=== PATIENT | male | born 1980 | race Caucasian/White ===

== ENCOUNTER 2018-01-06 19:19 | Emergency (ER) | payer BC ==
--- NOTE | 2018-01-06 20:24 | RAD REPORT ---
EXAM DESCRIPTION: CT - Head Brain Wo Cont - 01/06/2018 8:18 pm CLINICAL HISTORY: Weakness, numbness, TIA COMPARISON: None. TECHNIQUE: Axial 5 mm thick images of the head were obtained without IV contrast. All CT scans are performed using dose optimization technique as appropriate and may include automated exposure control or mA/KV adjustment according to patient size. FINDINGS: No intracranial hemorrhage, mass, edema or shift of mid-line structures. No acute infarcti on changes seen. No abnormal extra-axial fluid collections. Ventricles are normal. Mastoid air cells and visualized portions of the paranasal sinuses are clear. No acute bony findings. IMPRESSION: Negative non-contrast CT head examination.
[2018-01-06 21:03] LABS: Absolute Lymphocytes (CBC) 1.8 K/uL (0.7-4.9); Absolute Monocytes 0.5 K/uL (0.1-1.3); Absolute Neutrophil 3.6 K/uL (1.8-8.0); Basophils % 0.4 % (0-1.3); Eosinophils % 1.3 % (0-4.4); Hematocrit 45.5 % (39.6-49.0); Lymphocytes % 29.8 % (15.3-44.8); MCH 31.8 pg (27.0-35.0); MCV 90.9 fL (80-100); MPV 7.5 fL (7.6-11.3); Monocytes % 8.1 % (3.3-12.3); RBC Red Blood Cell Count 5.01 M/uL (4.33-5.43)
[2018-01-06 21:07] LABS: Protime INR 1.13
[2018-01-06 21:19] LABS: BUN Blood Urea Nitrogen 23 mg/dL (7-18); Bicarbonate 30 mmol/L (21-32); CKMB Creatine Kinase MB < 1.0 ng/mL (0.3-3.6); Creatine Phosphokinase 106 U/L (39-308); Glucose Level 121 mg/dL (74-106); Magnesium 2.4 mg/dL (1.8-2.4); Potassium 3.7 mmol/L (3.5-5.1); Sodium Level 142 mmol/L (136-145)
[2018-01-06] MEDS ORDERED: GENTAMICIN 0.3% OPTH DROP 5ML ONE (21:22)
[2018-01-06] MEDS ORDERED: NA CHLORIDE 0.9% 1,000 ML ONE (21:54)
--- NOTE | 2018-01-06 22:19 | ER ---
Nurse's Notes [facility] Name: Mina Simpson Age: 37 yrs Sex: Male : 1980 Arrival Date: 01/06/2018 Time: 19:22 Bed 14 Private MD: Diagnosis: Paresthesia of skin;Dysphasia and aphasia Presentation: 01/06 19:23 Presenting complaint: Patient states: "Yesterday driving home from [place] my leg fell aj1 asleep. It quit and then my arm fell asleep and then it quit and then my whole side fell asleep and I had a hard time talking. It happened again 3 hours ago." Denies any numbness at this time. Speech is clear, gait is steady, doctor assistant are equal and strong bilaterally. Patient reports that each episode lasts 30 minutes to an hour and then resolves and he feel fine afterward. Transition of care: patient was not received from another setting of care. Onset of symptoms was January 06, 2018 at 16:45. Risk Assessment: Do you want to hurt yourself or someone else? Patient reports no desire to harm self or others. Initial Sepsis Screen: Does the patient meet any 2 criteria? No. Patient's initial sepsis screen is negative. Does the patient have a suspected source of infection? No. Patient's initial sepsis screen is negative. Care prior to arrival: None. 19:23 Method Of Arrival: Ambulatory [facility] 19:23 Acuity: NATE 3 aj1 Triage Assessment: 19:27 General: Appears in no apparent distress. comfortable, Behavior is calm, cooperative, aj1 appropriate for age. Pain: Denies pain. Neuro: Level of Consciousness is awake, alert, obeys commands, Oriented to person, place, time, situation, Production Manager are equal bilaterally Moves all extremities. Full function Gait is steady, Speech is normal, Facial symmetry appears normal, Reports numbness that has now resolved. Cardiovascular: Patient's skin is warm and dry. Respiratory: Airway is patent Respiratory effort is even, unlabored, Respiratory pattern is regular, symmetrical. Derm: Skin is pink, warm \\T\\ dry. normal. Musculoskeletal: Circulation, motion, and sensation intact. Historical: - Allergies: 19:27 No Known Allergies; aj1 - Home Meds: 19:27 Nexium Oral [Active]; Allergy Medicine oral oral [Active]; aj1 - PMHx: 19:27 GERD; aj1 - PSHx: 19:27 Appendectomy; aj1 - Immunization history:: Flu vaccine is not up to date. - Social history:: Smoking status: Patient/guardian denies using tobacco. - Ebola Screening: : Patient denies travel to an Ebola-affected area in the 21 days before illness onset. - Family history:: not pertinent. - Hospitalizations: : No recent hospitalization is reported. Screenin:34 Abuse screen: Denies threats or abuse. Denies injuries from another. Nutritional bp screening: No deficits noted. Tuberculosis screening: No symptoms or risk factors identified. Fall Risk None identified. Assessment: 19:34 General: SEE TRIAGE NOTE. PT HAS NO ACUTE S/S AT THIS TIME. bp 21:30 Reassessment: PT NEURO INTACT. DISPOSITION PENDING. bp 23:33 Reassessment: REPORT TO [facility] AT [facility], RM 918. TRANSPORT PENDING. bp 01/07 01:30 Reassessment: EMS AT B/S FOR TRANSPORT. bp Vital Signs: 01/06 19:27 BP 135 / 93; Pulse 94; Resp 18; Temp 98.5; Pulse Ox 97% on R/A; Weight 85.28 kg (R); aj1 Height 5 ft. 6 in. (167.64 cm) (R); Pain 0/10; 20:50 BP 118 / 104; Pulse 91; Resp 14; Pulse Ox 95% ; bp 23:00 BP 132 / 85; Pulse 75; Resp 16; Pulse Ox 96% on R/A; bp 01/07 01:00 BP 124 / 83; Pulse 85; Resp 14; Pulse Ox 97% ; bp 01/06 19:27 Body Mass Index 30.34 (85.28 kg, 167.64 cm) aj1 ED Course: 01/06 19:22 Patient arrived in ED. es 19:26 Triage completed. aj1 19:27 Arm band placed on Patient placed in an exam room. aj1 19:33 Salvador Kc, RN is Primary Nurse. bp 19:34 Patient has correct armband on for positive identification. Bed in low position. Call bp light in reach. Side rails up X2. Adult w/ patient. 19:47 James Luna MD is Attending Physician. rn 20:18 CT Head Brain wo Cont In Process Unspecified. EDMS 20:45 Inserted saline lock: 20 gauge in right forearm, using aseptic technique. Blood bp collected. 23:37 No provider procedures requiring assistance completed. Patient transferred, IV remains bp in place. Administered Medications: 21:50 Drug: NS 0.9% 1000 ml Route: IV; Rate: 1000 ml; Site: right forearm; bp 23:38 Follow up: IV Status: Completed infusion bp 22:30 Drug: Aspirin Chewable Tablet 324 mg Route: PO; bp 23:18 Follow up: Response: No adverse reaction bp Outcome: 22:19 ER care complete, transfer ordered by . rn 23:37 Transferred by ground EMS to [facility]. bp 23:37 Condition: stable 23:37 Instructed on the need for transfer. 01/07 01:40 Patient left the ED. bp Signatures: Dispatcher [employer] Shawna Mcdowell RN RN Riddhi Cox Roman, MD MD rn Peltier, Brian, RN RN bp
--- NOTE | 2018-01-06 22:19 | EDPHYS ---
Physician Documentation [facility] Name: Mina Simpson Age: 37 yrs Sex: Male : 1980 Arrival Date: 01/06/2018 Time: 19:22 Bed 14 Private MD: ED Physician James Luna HPI: 01/06 21:57 This 37 yrs old Male presents to ER via Ambulatory with complaints of rn Numbness Of Face, Numbness of rt side of body and leg. 21:57 The patient's problem is reported as paresthesias, in right upper extremity, in right rn lower extremity, in right side of face, dysphasia. Onset: The symptoms/episode began/occurred yesterday. Duration: The episodes are intermittent. Associated signs and symptoms: Pertinent positives: numbness. Severity of symptoms: At their worst the symptoms were moderate in the emergency department the symptoms have improved. The patient has not experienced similar symptoms in the past. Reports slurred speech, unable to get out his words, facial numbness, leg numbness, lasted about an hour, resolved, happened again today. . Historical: - Allergies: 19:27 No Known Allergies; aj1 - Home Meds: 19:27 Nexium Oral [Active]; Allergy Medicine oral oral [Active]; aj1 - PMHx: 19:27 GERD; aj1 - PSHx: 19:27 Appendectomy; aj1 - Immunization history:: Flu vaccine is not up to date. - Social history:: Smoking status: Patient/guardian denies using tobacco. - Ebola Screening: : Patient denies travel to an Ebola-affected area in the 21 days before illness onset. - Family history:: not pertinent. - Hospitalizations: : No recent hospitalization is reported. ROS: 21:57 Constitutional: Negative for fever, chills, and weight loss, Eyes: Negative for injury, rn pain, redness, and discharge, Neck: Negative for injury, pain, and swelling, Cardiovascular: Negative for chest pain, palpitations, and edema, Respiratory: Negative for shortness of breath, cough, wheezing, and pleuritic chest pain, Abdomen/GI: Negative for abdominal pain, nausea, vomiting, diarrhea, and constipation, MS/Extremity: Negative for injury and deformity, Skin: Negative for injury, rash, and discoloration, Neuro: Negative for headache, weakness, and seizure. Exam: 21:57 Radiologist reports: No acute findings rn 21:57 Constitutional: This is a well developed, well nourished patient who is awake, alert, and in no acute distress. Head/Face: Normocephalic, atraumatic. Eyes: Pupils equal round and reactive to light, extra-ocular motions intact. Lids and lashes normal. Conjunctiva and sclera are non-icteric and not injected. Cornea within normal limits. Periorbital areas with no swelling, redness, or edema. Neck: Trachea midline, no thyromegaly or masses palpated, and no cervical lymphadenopathy. Supple, full range of motion without nuchal rigidity, or vertebral point tenderness. No Meningismus. Cardiovascular: Regular rate and rhythm with a normal S1 and S2. No gallops, murmurs, or rubs. Normal PMI, no JVD. No pulse deficits. Respiratory: Lungs have equal breath sounds bilaterally, clear to auscultation and percussion. No rales, rhonchi or wheezes noted. No increased work of breathing, no retractions or nasal flaring. Abdomen/GI: Soft, non-tender, with normal bowel sounds. No distension or tympany. No guarding or rebound. No evidence of tenderness throughout. MS/ Extremity: Pulses equal, no cyanosis. Neurovascular intact. Full, normal range of motion. Equal circumference. Neuro: Awake and alert, GCS 15, oriented to person, place, time, and situation. Cranial nerves II-XII grossly intact. Motor strength 5/5 in all extremities. Sensory grossly intact. Cerebellar exam normal. Normal gait. Vital Signs: 19:27 BP 135 / 93; Pulse 94; Resp 18; Temp 98.5; Pulse Ox 97% on R/A; Weight 85.28 kg (R); aj1 Height 5 ft. 6 in. (167.64 cm) (R); Pain 0/10; 20:50 BP 118 / 104; Pulse 91; Resp 14; Pulse Ox 95% ; bp 23:00 BP 132 / 85; Pulse 75; Resp 16; Pulse Ox 96% on R/A; bp 01/07 01:00 BP 124 / 83; Pulse 85; Resp 14; Pulse Ox 97% ; bp 01/06 19:27 Body Mass Index 30.34 (85.28 kg, 167.64 cm) aj MDM: 01/06 19:47 Patient medically screened. rn 22:01 Differential diagnosis: CVA, TIA, metabolic disorder. Data reviewed: vital signs, rn nurses notes, lab test result(s), EKG, radiologic studies, CT scan, and as a result, I will admit patient. Counseling: I had a detailed discussion with the patient and/or guardian regarding: the historical points, exam findings, and any diagnostic results supporting the discharge/admit diagnosis, lab results, radiology results, the need to transfer to another facility, for higher level of care, [facility] does not immediately have the required specialist. Response to treatment: the patient's condition has returned to base line, the patient is now symptom free. ED course: Pt with intermittent symptoms of unilateral numbness and speech problems, young, ct head normal, possible TIA or polyneuropathy, no neuro here, will transfer for neurological w/u and consult.. 22:18 ED course: Accepted for transfer to [facility] for neuro eval. Accepted by Dr. Mix.. rn 01/06 19:58 Order name: Urine Microscopic Only rn 01/06 19:58 Order name: Basic Metabolic Panel; Complete Time: 21:40 rn 01/06 19:58 Order name: CBC with Diff; Complete Time: 21:40 rn 01/06 19:58 Order name: Ckmb; Complete Time: 21:40 rn 01/06 19:58 Order name: CPK; Complete Time: 21:40 rn 01/06 19:58 Order name: Magnesium; Complete Time: 21:40 rn 01/06 19:58 Order name: CT Head Brain wo Cont; Complete Time: 20:42 rn 01/06 19:58 Order name: Protime (+inr); Complete Time: 21:40 rn 01/06 19:58 Order name: Ptt, Activated; Complete Time: 21:40 rn 01/06 19:58 Order name: Troponin (emerg Dept Use Only); Complete Time: 21:40 rn 01/06 19:58 Order name: EKG; Complete Time: 19:59 rn 01/07 01:17 Order name: Urine Dipstick--Ancillary (enter results) dc 01/06 19:58 Order name: Cardiac monitoring; Complete Time: 20:39 rn 01/06 19:58 Order name: EKG - Nurse/Tech; Complete Time: 23:27 rn 01/06 19:58 Order name: IV Saline Lock; Complete Time: 20:55 rn 01/06 19:58 Order name: Labs collected and sent; Complete Time: 20:55 rn 01/06 19:58 Order name: NPO; Complete Time: 20:39 rn 01/06 19:58 Order name: O2 Per Protocol; Complete Time: 20:39 rn 01/06 19:58 Order name: O2 Sat Monitoring; Complete Time: 20:39 rn 01/06 19:58 Order name: Urine Dipstick-Ancillary (obtain specimen); Complete Time: 23:27 rn Administered Medications: 21:50 Drug: NS 0.9% 1000 ml Route: IV; Rate: 1000 ml; Site: right forearm; bp 23:38 Follow up: IV Status: Completed infusion bp 22:30 Drug: Aspirin Chewable Tablet 324 mg Route: PO; bp 23:18 Follow up: Response: No adverse reaction bp Disposition: 01/06/18 22:19 Transfer ordered to [facility]. Diagnosis are Paresthesia of skin, Dysphasia and aphasia. - Reason for transfer: Higher level of care. - Accepting physician is Dr. Mix. - Condition is Stable. - Problem is new. - Symptoms have improved. Signatures: Dispatcher [employer] EDShawna Villalobos RN RN aj1 James Luna MD MD rn Peltier, Brian, RN RN bp Corrections: (The following items were deleted from the chart) 01/07 01:40 01/06 22:19 01/06/2018 22:19 Transfer ordered to [facility]. bp Diagnosis is Paresthesia of skin; Dysphasia and aphasia. Reason for transfer: Higher level of care. Accepting physician is Dr. Mix. Condition is Stable. Problem is new. Symptoms have improved. rn
[2018-01-06] MEDS ORDERED: ASPIRIN 81 MG CHEWABLE TABLET ONE (22:30)
[2018-01-06 23:33] LABS: Urine Bacteria <20 /HPF (NONE SEEN); Urine Culture Reflex Order NOT NEEDED; Urine Mucus MOD /HPF (NONE SEEN); Urine RBC <5 /HPF (NONE SEEN)
[2018-01-07 01:28] LABS: Urine Blood NEGATIVE (NEG); Urine Glucose NEGATIVE (NEG); Urine Protein TRACE (NEG); Urine Specific Gravity >1.030 (1.005-1.030)
--- NOTE | 2018-01-07 09:29 | EKG ---
Test Date: 2018-01-06 Test Time: 21:27:59 Applications Processor: BP MEASUREMENT RESULTS: Intervals: Rate: 88 MD: 162 QRSD: 80 QT: 342 QTc: 413 Banco: P: 45 MD: 162 QRS: 14 T: 11 INTERPRETIVE STATEMENTS: Normal sinus rhythm Normal ECG No previous ECG available for comparison Electronically Signed On 01-07-18 09:27:27 CDT by Bakari Drew
== END 2018-01-07 01:40 | disposition short-term general hospital (02) ==
LOC: ER 19:19
DX: R47.02 Dysphasia (principal); R47.01 Aphasia
CPT/HCPCS: 36415; 70450; 80048; 81003; 81015; 82550; 82553; 83735; 84484; 85025; 85610; 85730; 93005; 96360; 96361; 99285; J7030